=== PATIENT | male | born 1995 | race African-American/Black ===

== ENCOUNTER 2017-10-08 11:21 | Emergency (ER) | payer SELFPAY ==
[~2017-10-08] VITALS: Ht 185.4 cm; Wt 99.8 kg
--- NOTE | 2017-10-08 11:30 | PHYS DOC ---
Adult General Chief Complaint Chief Complaint: TESTICULAR PAIN OR INJURY [facility] HPI Patient is a 21 year old -[place] male who presents with right testicular pain. States he noted the about 12 days ago as a dull ache. He states actually got better then yesterday got much more sensitive. States he is noticing a swollen now. He states he has a history of chlamydia several years ago and had it treated. He did notice a white discharge from his penis after urinating and thinks it might be semen. He denies any fevers chills nausea or vomiting. He does have a little discomfort in his right inguinal canal that he noted today. He is sexually active with one woman. Review of Systems Review of Systems Constitutional: Denies fever or chills [] Eyes: Denies change in visual acuity, redness, or eye pain [] HENT: Denies nasal congestion or sore throat [] Respiratory: Denies cough or shortness of breath [] Cardiovascular: No additional information not addressed in HPI [] GI: Denies abdominal pain, nausea, vomiting, bloody stools or diarrhea [] : Denies dysuria or hematuria [] Musculoskeletal: Denies back pain or joint pain [] Integument: Denies rash or skin lesions [] Neurologic: Denies headache, focal weakness or sensory changes [] Endocrine: Denies polyuria or polydipsia [] All other systems were reviewed and found to be within normal limits, except as documented in this note. Physical Exam Physical Exam Constitutional: Well developed, well nourished, no acute distress, non-toxic appearance. [] HENT: Normocephalic, atraumatic, bilateral external ears normal, oropharynx moist, no oral exudates, nose normal. [] Eyes: PERRLA, EOMI, conjunctiva normal, no discharge. [] Neck: Normal range of motion, no tenderness, supple, no stridor. [] Cardiovascular:Heart rate regular rhythm, no murmur [] Lungs & Thorax: Bilateral breath sounds clear to auscultation [] Abdomen/genital exam: Bowel sounds normal, soft, no tenderness, no masses, no pulsatile masses. Right testicle swollen and tender to palpation, left testicle nontender, no penile discharge noted Skin: Warm, dry, no erythema, no rash. [] Back: No tenderness, no CVA tenderness. [] Extremities: No tenderness, no cyanosis, no clubbing, ROM intact, no edema. [] Neurologic: Alert and oriented X 3, normal motor function, normal sensory function, no focal deficits noted. [] Psychologic: Affect normal, judgement normal, mood normal. [] EKG EKG [] Radiology/Procedures Radiology/Procedures [address] [id number] IMAGING REPORT Signed PATIENT: DEMETRI SHORT ACCOUNT: [id number] : 1995 LOCATION: ER AGE: 21 SEX: M EXAM STATUS: REG ER ORD. PHYSICIAN: BIANCA ELAM MD REASON: pain PROCEDURE: TESTICULAR/SCROTUM Duplex sonography of the testicles and the scrotum Clinical indications: Swelling and increased sensitivity right greater than left for one week. Findings: Duplex sonography of the scrotum and both testicles was performed including ly scale evaluation and color flow and waveform spectral analysis. The longitudinal and AP and transverse dimensions of the right testicle are 4.9 cm and 2.3 cm and 3.6 cm respectively. The longitudinal and AP and transverse dimensions of the left testicle are 5.3 cm and 2.8 cm and 3.0 cm respectively. Both testicles are homogeneous without mass. The testicles demonstrate symmetric color Doppler flow and therefore no testicular torsion or orchitis is evident. There is hyperemia of the epididymis on both sides. This may be seen with epididymitis. There is a complex moderate size right-sided hydrocele. The head of the epididymis on right side is enlarged measuring up to 21 mm. The body of the epididymis on the right side is enlarged. Hydrocele on the left side is small. The head of the epididymis on left side measures 15 mm in size. The body of the left epididymis is enlarged. IMPRESSION: Bilateral epididymitis. Bilateral hydroceles right greater than left. The right side is more complex. DICTATED AND SIGNED BY: CELESTINE OLEA MD DATE: 10/08/17 1400 CC: BIANCA ELAM MD; PCP,NO ~ Impressions: Epididymitis Course & Med Decision Making Course & Med Decision Making Pertinent Labs and Imaging studies reviewed. (See chart for details) Ultrasound does not show any signs of torsion. Does show bilateral epididymitis. CT is sexually active he denies any anal intercourse. He has had chlamydia in the past. We will start Rocephin 250 IM and 100 mg twice a day doxycycline for 10 days. He's a follow-up with urology at [facility]. His pain is controlled this time. He is being discharged with tramadol when necessary for discomfort. Do not anticipate that he needs pain meds other than Tylenol and Advil. Return precautions given. He is agreeable plan being discharged in stable condition at this time. Dragon Disclaimer Dragon Disclaimer This electronic medical record was generated, in whole or in part, using a voice recognition dictation system. Departure Departure: Impression: Primary Impression: Epididymitis Disposition: HOME, SELF-CARE Condition: STABLE Referrals: PCPGUZMAN (PCP) ROB TRIPP MD Patient Instructions: Epididymitis Additional Instructions: You have an inflammation of the epididymis which is the top aspect of your testicles. This can be caused by sexually transmitted infection. Your given a shot of antibiotic Rocephin and will need to take 10 days of doxycycline which should take care of the infection. You will need to follow-up with the urologist at [facility]. Please call their office and schedule follow- up appointment. You can take tramadol as needed for pain. Please follow instructions on the bottle. Tramadol can impair judgment and make you sleepy so be careful when driving when taking this. He can also take Advil or Tylenol as a first line medicine for your pain if that does not controlling it then use tramadol. If you develop worsening pain, fevers, abdominal pain, nausea, pain on urination or other concerns please return back to the ER. Scripts Doxycycline Monohydrate (DOXYCYCLINE MONOHYDRATE) 100 Mg Capsule 1 CAP PO BID, #20 CAP Prov: BIANCA ELAM MD 10/08/17 Tramadol Hcl (TRAMADOL HCL) 50 Mg Tablet 50 MG PO PRN Q6HRS Y for PAIN, #12 TAB Prov: BIANCA ELAM MD 10/08/17 BIANCA ELAM MD Oct 08, 2017 11:30
[2017-10-08] MEDS ORDERED: MORPHINE SULFATE 4 MG/ML DISP.SYRIN. IM ONE (12:00)
[2017-10-08 12:07] LABS: BACTERIA,URINE MOD /HPF (0-FEW); BILIRUBIN,URINE NEG (NEG); CLARITY,URINE HAZY; COLOR,URINE YELLOW; GLUCOSE,URINE NEG (NEG); NITRITE,URINE NEG (NEG); SQUAMOUS EPITHELIAL CELL,UR OCC /LPF; UROBILINOGEN,URINE 1 mg/dL (0.2 mg/dL); WBC,URINE 20-40 /HPF (0-4)
[2017-10-08 12:50] VITALS: BP 128/73
--- NOTE | 2017-10-08 14:08 | RAD ---
Duplex sonography of the testicles and the scrotum Clinical indications: Swelling and increased sensitivity right greater than left for one week. Findings: Duplex sonography of the scrotum and both testicles was performed including ly scale evaluation and color flow and waveform spectral analysis. The longitudinal and AP and transverse dimensions of the right testicle are 4.9 cm and 2.3 cm and 3.6 cm respectively. The longitudinal and AP and transverse dimensions of the left testicle are 5.3 cm and 2.8 cm and 3.0 cm respectively. Both testicles are homogeneous without mass. The testicles demonstrate symmetric color Doppler flow and therefore no testicular torsion or orchitis is evident. There is hyperemia of the epididymis on both sides. This may be seen with epididymitis. There is a complex moderate size right-sided hydrocele. The head of the epididymis on right side is enlarged measuring up to 21 mm. The body of the epididymis on the right side is enlarged. Hydrocele on the left side is small. The head of the epididymis on left side measures 15 mm in size. The body of the left epididymis is enlarged. IMPRESSION: Bilateral epididymitis. Bilateral hydroceles right greater than left. The right side is more complex.
[2017-10-08] MEDS ORDERED: DOXYCYCLINE HYCLATE 100 MG TABLET PO ONE (14:30)
[2017-10-08] MEDS ORDERED: cefTRIAXone IM 250 MG VIAL IM ONE (14:30)
[2017-10-08] MEDS ORDERED: TRAM50TA PO (14:35)
[2017-10-08] MEDS ORDERED: DOXY100C14 PO (14:35)
== END 2017-10-08 14:40 | disposition home or self-care (01) ==
LOC: ER 11:21
DX: N45.1 Epididymitis (principal)
CPT/HCPCS: 36415; 76870; 81001; 87491; 87591; 96372; 99285; J0696; J2270; 87086